=== PATIENT | male | born 1970 | race Two or more races ===

== ENCOUNTER 2018-10-23 14:08 | Emergency (ER) | payer OTHER ==
[~2018-10-23] VITALS: Ht 167.6 cm; Wt 90.2 kg
--- NOTE | 2018-10-23 14:31 | NUR ---
PT TO ED FOR [facility] ABD PAIN RAD TO LEFT FLANK X2 DAYS. PT WAS SEEN AT [facility] YESTERDAY AND DIAGNOSED WITH DIVERTICULITIS. PT WAS SKEPTICAL ABOUT ABX AND DECIDED TO BE SEEN HERE. CONNECTED TO MONITORS. VSS. EDMD ASSESSMENT COMPLETE. AWAITING ORDERS.
[2018-10-23 14:55] LABS: MICROSCOPIC NOT IND
[2018-10-23 15:06] LABS: CULTURE INDICATED? NO
[2018-10-23 15:07] LABS: BASOPHILS # (AUTO) 0.03 x10^3/uL (0-0.1); BASOPHILS % (AUTO) 0 % (0-1); EOSINOPHILS # (AUTO) 0.16 x10^3/uL (0-0.4); EOSINOPHILS % (AUTO) 2 % (1-7); LYMPHOCYTES # (AUTO) 2.32 x10^3/uL (1-3.4); LYMPHOCYTES % (AUTO) 32 % (22-44); MD NO; MEAN CORPUSCULAR HEMOGLOBIN 31.4 pg (27.5-34.5); MEAN CORPUSCULAR HGB CONC 33.9 g/dL (33.2-36.2); MEAN CORPUSCULAR VOLUME 92.7 fL (81-97); MEAN PLATELET VOLUME 7.5 fL (7.4-10.4); MONOCYTES % (AUTO) 6 % (2-9); NEUTROPHILS # (AUTO) 4.26 x10^3/uL (1.8-6.8); NEUTROPHILS % (AUTO) 60 % (42-75); PLATELET COUNT 238 x10^3/uL (130-400); RED BLOOD COUNT 5.34 x10^6/uL (4.38-5.82)
[2018-10-23 15:12] LABS: ALANINE AMINOTRANSFERASE 34 U/L (12-78); ALBUMIN 4.1 g/dL (3.4-5.0); ANION GAP 4 mmol/L (5-15); CALCIUM 8.9 mg/dL (8.5-10.1); CHLORIDE 112 mmol/L (98-107); CREATININE 0.84 mg/dL (0.7-1.3)
[2018-10-23 15:14] LABS: ALKALINE PHOSPHATASE 121 U/L (45-117); BILIRUBIN,TOTAL 0.4 mg/dL (0.2-1.0); TOTAL PROTEIN 7.5 g/dL (6.4-8.2)
[2018-10-23 15:34] VITALS: BP 136/86
--- NOTE | 2018-10-23 15:34 | NUR ---
PT RESTING IN ROOM WTIH CALL LIGHT WITHIN REACH. VSS. ALL RESULTS BACK AT THIS TIME. CHART UP FOR RECHECK.
== END 2018-10-23 16:53 | disposition home or self-care (01) ==
LOC: ED 14:24
DX: R10.32 Left lower quadrant pain (principal); F17.200 Nicotine dependence, unspecified, uncomplicated
CPT/HCPCS: 36415; 80053; 81003; 83605; 83690; 85025; 99283